=== PATIENT | male | born 1990 | race Caucasian/White ===

== ENCOUNTER → 2020-08-20 | Outpatient (CLI) | payer OTHER ==
--- NOTE | 2020-08-20 11:11 | Diagnostic Imaging Report ---
INDICATION: Chronic back pain. TIME OF EXAM: 10:50 a.m. EXAMINATION: Frontal and lateral views of the lumbar spine were obtained. FINDINGS: Curvature alignments are normal. Vertebral body heights and disc spaces are well maintained. No fracture or subluxation is seen. IMPRESSION: No acute bony abnormality is detected. Dictated by: Dictated on workstation # [id number]
--- NOTE | 2020-08-20 11:19 | Diagnostic Imaging Report ---
INDICATION: Chronic back pain. TIME OF EXAM: 10:53 AM AP and lateral views of the thoracic spine were obtained. FINDINGS: Curvature and alignment is normal. Vertebral body heights are maintained. No compression fracture is seen. The pedicles and paraspinous line are intact. IMPRESSION: No acute bony abnormality is detected. Dictated by: Dictated on workstation # [id number]
== END ==
LOC: RAD 10:38
DX: M54.5 Low back pain (principal); G89.29 Other chronic pain
CPT/HCPCS: 72070; 72100